=== PATIENT | female | born 1950 | race Caucasian/White ===

== ENCOUNTER 2019-03-07 12:18 | Emergency (ER) | payer MEDICARE ==
[2019-03-07 12:51] VITALS: BP 146/72
[2019-03-07] MEDS ORDERED: Albuterol 2.5 MG/3 ML NEB.SOL* (0.083%) INH ONE (13:26)
--- NOTE | 2019-03-07 13:27 | UC ---
General HPI - HPI Summary HPI Summary: SEEN IN ER ABOUT 5 DAYS AGO AND TX WITH CLARITIN. RETURNED THERE 2 DAYS LATER AND CLARITIN STOPPED PLUS PT PLACED ON AMOXICILLIN. SHE COMES IN TODAY BECAUSE HER R EAR REMAINS PLUGGED. PT NOTES THAT HER COUGH IS IMPROVING. NO FEVER, CP OR SOB. NO HX ASTHMA. - History of Current Complaint Chief Complaint: UCRespiratory Stated Complaint: EARS,THROAT COMPLAINT Time Seen by Provider: 03/07/19 13:17 Hx Obtained From: Patient Pain Intensity: 0 - Allergy/Home Medications Allergies/Adverse Reactions: Allergies Allergy/AdvReac Type Severity Reaction Status Date / Time No Known Allergies Allergy Verified 03/07/19 12:35 Home Medications: Home Medications Amoxicillin PO (*) [Amoxicillin 500 MG CAP*] 500 mg PO Q12H 03/07/19 [History Confirmed 03/07/19] Aspirin 81 mg CHEW TAB* [Aspirin Low Dose TAB*] 81 mg PO DAILY 03/07/19 [ History Confirmed 03/07/19] Ibuprofen TAB* [Motrin TAB* 600 MG] 600 mg PO Q6H PRN 03/07/19 [History Confirmed 03/07/19] Losartan TAB* [Cozaar TAB*] 50 mg PO DAILY 03/07/19 [History Confirmed 03/07/19] Metoprolol Tartrate TAB* [Lopressor TAB*] 100 mg PO BID 03/07/19 [History Confirmed 03/07/19] Omeprazole 40 mg PO DAILY 03/07/19 [History Confirmed 03/07/19] Simvastatin [Zocor] 40 mg PO 03/07/19 [History] Tragenda 5 mg PO DAILY 03/07/19 [History] metFORMIN* [Glucophage 500 MG TAB *] 500 mg PO BID 03/07/19 [History Confirmed 03/07/19] PMH/Surg Hx/FS Hx/Imm Hx Endocrine History: Diabetes, Hyperthyroidism, Dyslipidemia GI/ History: Gastroesophageal Reflux - Surgical History Surgical History: Yes Surgery Procedure, Year, and Place: CHOYLCYSTECTOMY. TONSILLECTOMY. PARTIAL THYROIDECTOMY. LUBAL LIGATION - Family History Known Family History: Positive: Non-Contributory - Social History Alcohol Use: None Substance Use Type: None Smoking Status (MU): Never Smoked Tobacco - Immunization History Vaccination Up to Date: Yes Review of Systems All Other Systems Reviewed And Are Negative: Yes Constitutional: Negative: Fever ENT: Positive: Ear Ache - R. Negative: Sinus Pain/Tenderness Respiratory: Positive: Cough. Negative: Shortness Of Breath Cardiovascular: Negative: Palpitations Physical Exam Triage Information Reviewed: Yes Appearance: Well-Appearing Vital Signs: Initial Vital Signs Temp 98.3 F 03/07/19 12:41 Pulse 111 03/07/19 12:41 Resp 16 03/07/19 12:41 BP 146/72 03/07/19 12:41 Pulse Ox 96 03/07/19 12:41 Vital Signs Reviewed: Yes Eyes: Positive: Conjunctiva Clear ENT: Positive: Pharyngeal erythema, TM red - L. R obscured by cerumen., Uvula midline. Negative: Nasal congestion, Nasal drainage, Tonsillar swelling, Tonsillar exudate, Trismus, Muffled voice Neck: Positive: Supple, Nontender, No Lymphadenopathy Respiratory: Positive: Lungs clear, No respiratory distress, Decreased breath sounds, Other: - bronchospastic cough with loose congestion. Negative: Crackles , Rhonchi Cardiovascular: Positive: RRR, No Murmur Abdomen Description: Positive: Nontender Musculoskeletal: Positive: ROM Intact Neurological: Positive: Alert Psychological: Positive: Age Appropriate Behavior Skin Exam: Normal Re-Evaluation - Re-Evaluation First Eval Re-Evaluation Time: 14:14 Comment: R tm is visible and bhatt but the canal is red. Pt feels unchanged with neb tx Course/Dx - Course Course Of Treatment: pt declined an mdi for home. - Diagnoses Provider Diagnosis: Otitis media, Cough, Excessive cerumen in right ear canal, Otitis externa Discharge - Sign-Out/Discharge Documenting (check all that apply): Patient Departure All imaging exams completed and their final reports reviewed: No Studies - Discharge Plan Condition: Stable Disposition: HOME Prescriptions: Neomyc/Polym/HC 1% OTIC SUSP* [Cortisporin Otic Susp 1%*] 4 drop RIGHT EAR TID 7 Days #1 btl Patient Education Materials: Ear Infection (ED), Otitis Externa (ED), Acute Cough (ED) Referrals: Tu Remy MD [Primary Care Provider] - 4 Days Additional Instructions: COMPLETE THE AMOXICILLIN DIRECTED. - Billing Disposition and Condition Condition: STABLE Disposition: Home
== END 2019-03-07 14:47 | disposition home or self-care (01) ==
LOC: UCCORT 12:18
DX: H66.91 Otitis media, unspecified, right ear (principal); R05 Cough; H61.21 Impacted cerumen, right ear; H60.90 Unspecified otitis externa, unspecified ear; E11.9 Type 2 diabetes mellitus without complications; Z79.84 Long term (current) use of oral hypoglycemic drugs; E78.5 Hyperlipidemia, unspecified; K21.9 Gastro-esophageal reflux disease without esophagitis
CPT/HCPCS: 99203; G0463